=== PATIENT | female | born 1940 | race American Indian/Alaskan Native ===

== ENCOUNTER 2018-09-06 19:35 | Inpatient (IN) | payer MEDICARE, OTHER ==
--- NOTE | 2018-09-06 20:01 | ED PDOC ---
Arrival/HPI - General Chief Complaint: Seizure Time Seen by Provider: 09/06/18 19:39 - History of Present Illness Narrative History of Present Illness (Text): 77 y/o F c PMHx CVA with residual R sided weakness, HTN, clipped aneurysm p/w syncope x 5 seconds today. Patient was witnessed by family to lose consciousness for about 5 seconds, regained consciousness, was confused/dazed for a few more seconds and then returned to baseline. No convulsions. Patient denies any pain, dyspnea, vomiting, fever. Past Medical History - Cardiac Hx Hypertension: Yes - Neurological HX Cerebrovascular Accident: Yes (x 2) - Psychiatric Hx Depression: Yes Hx Emotional Abuse: No Hx Physical Abuse: No Hx Substance Use: No - Anesthesia Hx Anesthesia: No Hx Anesthesia Reactions: No Hx Malignant Hyperthermia: No - Suicidal Assessment Feels Threatened In Home Enviroment: No Family/Social History Family/Social History: No Known Family HX Smoking Status: Never Smoked Hx Alcohol Use: No Hx Substance Use: No Hx Substance Use Treatment: No Allergies/Home Meds Allergies/Adverse Reactions: Allergies No Known Allergies Allergy (Verified 07/02/12 12:39) Home Medications: Home Meds Medication Instructions Recorded Confirmed Furosemide [Lasix] 40 mg PO 09/07/18 Metoprolol Tartrate [Lopressor] 50 mg PO 09/07/18 RX: metFORMIN [glucOPHAGE] 09/07/18 Simvastatin 09/07/18 Spironolactone 09/07/18 Starlix 09/07/18 Review of Systems - Physician Review All systems were reviewed & negative as marked: Yes - Review of Systems Constitutional: absent: Fevers Respiratory: absent: SOB Cardiovascular: absent: Chest Pain Physical Exam - Physical Exam Narrative Physical Exam (Text): Gen: NAD Head: NC/AT Eyes: PERRL ENT: MMM Neck: Supple Chest: No tenderness CV: Regular rate Lungs: CTA b/l Abd: Soft, NT Back: No tenderness Skin: No rash Extremities: No tenderness Neuro: Alert, R sided weakness Vital Signs Temp Pulse Resp BP Pulse Ox 09/06/18 19:53 97.4 F L 60 18 149/64 98 Medical Decision Making ED Course and Treatment: EKG Sinus rhythm, 56 bpm, no ST elevations. 09/06/18 21:23 CT Head reviewed, shows: IMPRESSION: 1. There is generalized parenchymal atrophy noted as demonstrated by symmetrical dilatation of ventricles and sulci. 2. Chronic severe periventricular and subcortical microvascular disease is seen. 3. 8 mm left middle cranial fossa extra-axial ossified lesion compatible with a meninioma. 4. No acute intracranial pathology. Dr. Workman accepts patient to her service, recommends Dr. Queen for consultation. - RAD Interpretation Radiology Orders: 09/06/18 20:00 CHEST PORTABLE [RAD] Stat Disposition/Present on Arrival - Present on Arrival Any Indicators Present on Arrival: No History of DVT/PE: No History of Uncontrolled Diabetes: No Urinary Catheter: No History of Decub. Ulcer: No History Surgical Site Infection Following: None - Disposition Have Diagnosis and Disposition been Completed?: Yes Diagnosis: Syncope Disposition: HOSPITALIZED Disposition Time: 21:23 Patient Plan: Observation, Telemetry Condition: FAIR
[2018-09-06 21:24] LABS: ALB/GLOB RATIO 1.1 (1.1-1.8); ALBUMIN 4.3 g/dL (3.0-4.8); ALT/SGPT 17 U/L (7-56); AST/SGOT 23 U/L (14-36); BLOOD UREA NITROGEN 30 mg/dL (7-21); CALCIUM 9.7 mg/dL (8.4-10.5); GFR NON-AFRICAN AMERICAN 27
[2018-09-06 21:31] LABS: INR 0.97; PARTIAL THROMBOPLASTIN TIME 30.6 Seconds (25.1-36.5)
[2018-09-06 21:42] LABS: GRAN % 51.6 % (50.0-68.0); HEMOGLOBIN 10.7 g/dL (12.0-16.0); LYMPH % 38.3 % (22.0-35.0); MEAN CORPUSCULAR HEMOGLOBIN 26.3 pg (25.0-35.0); MEAN CORPUSCULAR HGB CONC 30.6 g/dl (31.0-37.0); MEAN PLATELET VOLUME 12.3 fl (7.0-11.0); RBC 4.07 10^6/uL (3.5-6.1); RED CELL DISTRIBUTION WIDTH 16.5 % (11.5-14.5); WHITE BLOOD COUNT 7.9 10^3/uL (4.5-11.0)
[2018-09-06 21:43] LABS: BASO # 0.02 K/mm3 (0.0-2.0); BASO % 0.3 % (0.0-3.0); EOS # 0.2 (0.0-0.7); EOS % 2.9 % (1.5-5.0); GRAN # 4.06 (1.4-6.5); MONO # 0.5 (0.1-0.6); MONO % 6.9 % (1.0-6.0)
[2018-09-06 22:01] LABS: B-TYPE NATRIURETIC PEPTIDE 5050 pg/mL (0-450)
[2018-09-06 22:16] LABS: TROPONIN I < 0.01 ng/mL
[2018-09-07 04:04] VITALS: BMI 32.5
--- NOTE | 2018-09-07 09:55 | CT ---
Date of service: 09/06/2018 PROCEDURE: CT HEAD WITHOUT CONTRAST. HISTORY: Syncope. History of aneurysm / CVA COMPARISON: Comparison prior CT scan brain dated 07/02/2012. TECHNIQUE: Axial computed tomography images were obtained through the head/brain without intravenous contrast. Radiation dose: Total exam DLP = 1430.28 mGy-cm. This CT exam was performed using one or more of the following dose reduction techniques: Automated exposure control, adjustment of the mA and/or kV according to patient size, and/or use of iterative reconstruction technique. FINDINGS: HEMORRHAGE: N the o parenchymal, subarachnoid nor extra-axial hemorrhage. BRAIN: Chronic left occipital and posterior temporal infarct (left [employer] territory).. In addition, there is a small discrete chronic infarct seen in the left aspect of the ginger. There are significant diffuse/confluent chronic periventricular white matter ischemic changes seen extending peripherally into the deep and subcortical white matter both cerebral hemispheres with extension into the white matter tracts of both basal nuclei.. Few more discrete chronic bilateral basal nuclei lacunar type infarcts also suspected Vascular calcifications both carotid siphons. There is an elliptical shaped extra-axial calcification arising from the floor of the left middle cranial fossa that could conceivably represent a calcified meningioma. VENTRICLES: No obstructive hydrocephalus. CALVARIUM: Unremarkable. PARANASAL SINUSES: There is a focal area polypoid like mucosal thickening left maxillary antrum. MASTOID AIR CELLS: Unremarkable as visualized. No inflammatory changes. OTHER FINDINGS: None. IMPRESSION: No acute intracranial hemorrhage. Chronic left temporoparietal infarct. Small left the small chronic left pontine infarct. Significant chronic white matter ischemic changes with extension into the white matter tracts of both basal nuclei. Few more discrete chronic bilateral basal nuclei lacunar type infarcts also suspected. Moderate generalized volume loss. Possible calcified meningioma arising from the anterior floor left middle cranial fossa.
[2018-09-07] MEDS ORDERED: Magnesium Hydroxide Susp 30 ml UD PO PRN (11:57)
[2018-09-07] MEDS: STARLIX PO SCH ×2 (13:26→17:07)
--- NOTE | 2018-09-07 15:07 | RAD ---
Date of service: 09/06/2018 HISTORY: syncope COMPARISON: Comparison chest 07/02/2012 FINDINGS: LUNGS: Poor inspiration with low lung volumes, crowded bronchovascular markings and mild bibasilar atelectasis. PLEURA: No significant pleural effusion identified, no pneumothorax apparent. CARDIOVASCULAR: Mild moderate aortic atherosclerotic calcification present. Cardiomegaly.. No pulmonary vascular congestion. OSSEOUS STRUCTURES: No significant abnormalities. VISUALIZED UPPER ABDOMEN: Normal. OTHER FINDINGS: None. IMPRESSION: Poor inspiration with low lung volumes, crowded bronchovascular markings and mild bibasilar atelectasis.
--- NOTE | 2018-09-07 17:42 | CARD ---
APPROVED REPORT Date of service: 09/06/2018 EKG Measurement Heart [id number] <Conclusion> Sinus bradycardia Left axis deviation Left ventricular hypertrophy with repolarization abnormality Cannot rule out Septal infarct, age undetermined Abnormal ECG
[2018-09-07] MEDS ORDERED: Home Med 1 UNIT PO SCH (18:00)
--- NOTE | 2018-09-07 21:38 | CON ---
DATE OF CONSULTATION: 09/07/2018 REFERRING PHYSICIAN: Nidhi Workman MD REASON FOR CONSULTATION: Recurrent CVA, may have sleep apnea syndrome. HISTORY OF PRESENT ILLNESS: This is a 77-year-old female, known history of stroke, history of cranial aneurysm requiring clipping in the remote past with right-sided weakness, hypertension, recurrent syncopal episode last month witnessed by the family, lasted 5 seconds, regained consciousness, but was confused, brought into emergency room, had a CT of the head done, which was unremarkable for any new changes. She is lying in the bed at this time agitated, presently in upper extremity restraint, has on and off cough, admits to have loud snoring, daytime sleepiness and tiredness. No vomiting, hematuria, no diarrhea reported. PAST MEDICAL HISTORY: Hypertension, history of stroke, history of cranial aneurysm requiring clipping, history of depression, heart failure and diabetes. FAMILY HISTORY: No significant cardiopulmonary disease reported. SOCIAL HISTORY: No history of smoking or alcohol use. MEDICATIONS: She is on Aldactone 25 mg daily, metformin 500 mg twice a day, Lasix 40 mg daily, Lipitor 10 mg daily, metoprolol tartrate 50 mg twice a day, Milk of Magnesia p.o. p.r.n., Pepcid 40 mg h.s., Tylenol p.r.n., vitamin D 5000 International Units weekly, Zestril 10 mg twice a day. ALLERGIES: NONE KNOWN. REVIEW OF SYSTEMS: Agitated at this time, has a restraint. No headache, no rhinitis. On and off cough and shortness of breath. No chest pain. No nausea, vomiting, diarrhea, leg pain or leg swelling. PHYSICAL EXAMINATION: GENERAL: No acute distress. VITAL SIGNS: Temperature is 98, heart rate 69, respiratory rate is 18, blood pressure 142/70, pulse ox 98% on room air. HEENT: Moist mucous membranes. Crowded airway. Mallampati score is 4. NECK: Supple. No JVD. LUNGS: Fair airflow with scattered rhonchi. HEART: S1 and S2. ABDOMEN: Soft, nontender, no organomegaly. EXTREMITIES: No edema. NEUROLOGICAL: Awake, alert, follows simple commands. LABORATORY DATA: Hemoglobin 10.7, hematocrit 35.0, WBC 7.9, platelets 208. INR 0.97. PTT 31. Sodium 139, potassium 4.8, chloride 101, bicarbonate 28, BUN 30, creatinine 1.8, glucose 71, calcium 9.7. AST 23, ALT 17, alk phos is 53. ProBNP 5050. Troponin less than 0.01. Albumin is 4.3. CAT scan of the head done in ER shows no acute intracranial hemorrhage, chronic left temporoparietal infarct, the small chronic left pontine infarct. There are also significant chronic white matter ischemic changes. There are also some lacunar infarcts. There is also calcified meningioma possibility. Chest x-ray done in ER shows poor inspiratory effort, low lung volume, crowded bronchovascular marking, and mild basilar atelectasis. IMPRESSION AND PLAN: Probably had a seizure/syncopal episode, history of cranial aneurysm requiring clipping, stroke with residual right-sided weakness, hypertension, diabetes, may have sleep apnea syndrome, could have bronchitis. Case discussed with the nursing staff. Keep head elevated at 45 degrees. Aspiration precautions. Dysphagia evaluation. We will be seen by Neurology. We will order an EEG. Seizure precautions. Gastric and DVT prophylaxis. We will suggest attending sleep study upon discharge as outpatient to rule out sleep apnea syndrome. Thank you and we will follow with you. Monica aGlaviz MD
[2018-09-07] MEDS: Insulin Reg-LOW-Coverage SC SCH (22:13)
--- NOTE | 2018-09-08 08:08 | CP.PCM.CON ---
History of Present Illness - History of Present Illness History of Present Illness: Awake, alert, confuse, disoriented,no distress Reason for consultation: Cardiac evaluation of syncope Brief history of present illness: A 77 year old female who was brought by daughter to ER due to lost of consciousness for about 5 seconds witnessed by daughter, when regained consciousness she was confused. History of cerebrovascu lar accident with right sided weakness, hypertension,clipped aneurysm, depression. Current smoker. Poor historian. Seen and examned by me and Dr. Purdy Review of Systems - Review of Systems Review of Systems: as per HPI Past Patient History - Past Social History Smoking Status: Current Some Days Smoker - CARDIAC Hx Cardiac Disorders: Yes Hx Hypertension: Yes - NEUROLOGICAL HX Cerebrovascular Accident: Yes (x 2) - MUSCULOSKELETAL/RHEUMATOLOGICAL Hx Falls: No - PSYCHIATRIC Hx Depression: Yes Hx Emotional Abuse: No Hx Physical Abuse: No Hx Substance Use: No - ANESTHESIA Hx Anesthesia: No Hx Anesthesia Reactions: No Hx Malignant Hyperthermia: No Meds Allergies/Adverse Reactions: Allergies Allergy/AdvReac Type Severity Reaction Status Date / Time No Known Allergies Allergy Verified 07/02/12 12:39 - Medications Medications: Current Medications Acetaminophen (Tylenol 325mg Tab) 650 mg PO Q4H PRN PRN Reason: pain fever Atorvastatin Calcium (Lipitor) 10 mg PO HS [facility] Last Admin: 09/07/18 22:16 Dose: Not Given Cholecalciferol (Vitamin D) 5,000 intlu PO QWK [facility] Enoxaparin Sodium (Lovenox) 40 mg SC DAILY [facility]; Protocol Famotidine (Pepcid) 40 mg PO HS [facility] Last Admin: 09/07/18 22:17 Dose: Not Given Furosemide (Lasix) 40 mg PO DAILY [facility] Home Med (Home Med) 60 unit PO TID [facility] Last Admin: 09/07/18 17:07 Dose: Not Given Insulin Human Regular (Humulin R Low) [address] [facility]; Protocol Last Admin: 09/07/18 22:13 Dose: Not Given Lisinopril (Zestril) 10 mg PO BID [facility] Last Admin: 09/07/18 17:24 Dose: 10 mg Magnesium Hydroxide (Milk Of Magnesia) 30 ml PO DAILY PRN PRN Reason: Constipation Metformin HCl (Glucophage) 500 mg PO BID [facility] Last Admin: 09/07/18 17:24 Dose: 500 mg Metoprolol Tartrate (Lopressor) 50 mg PO BID [facility] Last Admin: 09/07/18 17:24 Dose: 50 mg Spironolactone (Aldactone) 25 mg PO DAILY [facility] Physical Exam - Constitutional Appears: Non-toxic, No Acute Distress - Head Exam Head Exam: NORMAL INSPECTION, NORMOCEPHALIC - Eye Exam Eye Exam: Normal appearance Pupil Exam: NORMAL ACCOMODATION - ENT Exam ENT Exam: Mucous Membranes Moist, Normal Exam - Respiratory Exam Respiratory Exam: Clear to Auscultation Bilateral, NORMAL BREATHING PATTERN - Cardiovascular Exam Cardiovascular Exam: REGULAR RHYTHM, +S1, +S2 Additional comments: Telemetry NSR 70's with PVC's - GI/Abdominal Exam GI & Abdominal Exam: Normal Bowel Sounds, Soft - Neurological Exam Neurological exam: Alert Additional comments: confuse - Skin Skin Exam: Normal Color, Warm Results - Vital Signs Recent Vital Signs: Last Vital Signs Temp 97.9 F 09/08/18 00:01 Pulse 75 09/08/18 06:00 Resp 20 09/08/18 06:00 BP 130/65 09/08/18 06:00 Pulse Ox 94 L 09/08/18 06:00 - Labs Result Diagrams: 09/06/18 20:00 09/06/18 20:00 Labs: Laboratory Results - last 24 hr 09/07/18 09/07/18 09/07/18 11:09 16:01 21:34 POC Glucose (mg/dL) 107 171 H 121 H Assessment & Plan - Assessment and Plan (Free Text) Assessment: A 77 year old female who was brought by daughter to ER due to lost of consciousness for about 5 seconds witnessed by daughter, when regained consciousness she was confused. History of cerebrovascular accident(2x) with right sided weakness, hypertension,clipped aneurysm, depression. Current smoker. Poor historian. CT Head done and showed No acute intracranial hemorrhage. There is generalized parenchymal atrophy noted as demonstrated by symmetrical dilatation of ventricles and sulci. Chronic severe periventricular and subcortical microvascular disease is seen. 8 mm left middle cranial fossa ext ra-axial ossified lesion compatible with a meninioma. No cardiac work up done at [facility]. Will order echo to evaluate LV function. Elevated BNP 5050. Troponin normal ,Chest X ray showed poor inspiration with low lung volumes,mild bibasalar atelectasis, no pleural effusion, no pulmonary vascular congestion. Plan: Denies shortness of breath or chest pain Heart rate stable/controlled Blood pressure stable Echo to evaluate LV function TSH, lipid profile and HgbA1C level On Lipitor 10 mg daily,Lovenox 40 mg daily,Lasix 40 mg daily, Lisinopril 10 mg BID,Lopressor 50 mg BID,Aldactone 25 mg daily. Continue current treatment Continue current medications Chart reviewed Will follow up Further recommendations during hospital course Plan and treatment discussed with Dr. Purdy Thank you Dr. Workman for the opportunity of taking care of Ms. Torrey Macias - Date & Time Date: 09/08/18 Time: 06:15
[2018-09-08] MEDS: Insulin Reg-LOW-Coverage SC SCH ×4 (08:35→22:00)
[2018-09-08] MEDS: STARLIX PO SCH ×3 (09:41→18:19)
[2018-09-08] MEDS: Enoxaparin 40 mg Syringe SC SCH ×2 (09:41→10:34)
--- NOTE | 2018-09-08 14:55 | PN ---
DATE: 09/08/2018 REASON FOR CONSULTATION: Followup cardiac evaluation and syncope. This note is an addition to the note dictated by nurse practitioner. SUBJECTIVE: In summary, this is a 77-year-old female brought to the ER while sitting in the wheelchair. The patient possibly lost consciousness and brought here. The patient states that she was tired, but she did not lose the consciousness, though the patient has a history of CVA with right-sided weakness, hypertension, and poor historian. RECOMMENDATIONS: We will get echo. We will get lipid profile, TSH, hemoglobin A1c with orthostatic hypotension. We will resume previous medication. Further recommendations depending upon the hospital course. We will follow with you. Thank you, Dr. Workman, for providing us the opportunity in taking care of patient. Monica Purdy MD
--- NOTE | 2018-09-08 16:01 | PN ---
DATE: 09/08/2018 PULMONARY PROGRESS NOTE REFERRING PHYSICIAN: Nidhi Workman MD SUBJECTIVE: She is lying in the bed, head at 45 degrees. Daughter and son at bedside. Much more awake and alert. No headache, no rhinitis. No nausea, vomiting, or diarrhea. No leg pain or leg swelling. OBJECTIVE: GENERAL: In no acute distress. VITAL SIGNS: Temperature 98, heart rate is 72, respiratory rate is 18, blood pressure 97/55, pulse ox 94% on room air. HEENT: Moist mucous membranes. Crowded airway. Mallampati score is 4. NECK: Supple. No JVD. LUNGS: Have a fair airflow with rhonchi. HEART: S1, S2. ABDOMEN: Soft, nontender. No organomegaly. EXTREMITIES: No edema. NEUROLOGIC: Awake, alert. Follows simple commands. MEDICATIONS: She is on Aldactone 25 mg daily, metformin 5 mg twice a day, Lasix 40 mg daily, Lipitor 10 mg at bedtime, metoprolol tartrate 50 mg twice a day, Lovenox 40 mg subcutaneously daily, Pepcid 40 mg daily, Tylenol on as needed basis, vitamin D 5000 units daily, Zestril 10 mg twice a day. LABORATORY DATA: Reviewed. Blood sugar this morning, 136. IMPRESSION AND PLAN: Seizure disorder is being ruled out, could have a syncope, history of cranial aneurysm requiring clipping of aneurysm with residual weakness, hypertension, diabetes, may have sleep apnea syndrome, heart failure. Spoke to family at bedside. All the questions answered. Keep head at 45 degrees. Aspiration precaution. Dysphagia evaluation. Awaiting for Neurology evaluation. Electroencephalogram has been ordered, waiting for it. Continue gastric and deep venous thrombosis prophylaxis. Aspiration precaution. Fall precaution. We will order labs for the morning. Thank you and we will follow with you. Monica Galaviz MD
--- NOTE | 2018-09-08 23:12 | PN ---
DATE: 09/08/2018 SUBJECTIVE: The patient is a 77-year-old female. The patient was seen and examined at the bedside on 09/08/2018. The patient is lying down, comfortable. Getting EEG. No fevers. No chills. No hematuria or hematochezia. No swelling of legs. No chest pain or palpitation. No headache. No dizziness. PHYSICAL EXAMINATION: VITAL SIGNS: Temperature 98, heart rate 72, respiratory rate 18, blood pressure 97/55, and pulse oximetry 94%. HEENT: Head: Normocephalic and atraumatic. Eyes: PERRLA. Extraocular muscles intact. Conjunctivae clear. Nose patent. Mucous membranes moist. NECK: Supple. No carotid bruits. No JVD or thyromegaly. CHEST: Bilaterally symmetrical. HEART: S1 and S2 positive. LUNGS: Clear to auscultation. ABDOMEN: Soft, nontender. No organomegaly. EXTREMITIES: No edema. No cyanosis. NEUROLOGIC: The patient is awake and alert. Follow simple commands. MEDICATIONS: Aldactone, metformin, Lasix, Lipitor, metoprolol, Lovenox, Pepcid, Tylenol, vitamin D, and Zestril. LABORATORY DATA: We do not have labs today, but I reviewed old labs. Blood sugars 136. ASSESSMENT AND PLAN: Ms. Torrey Macias is a 77-year-old lady, resident of [facility], came with seizure disorder, may be syncopal attack. Neurologist is on the case. The patient is getting EEG at the time of examination. History of cranial aneurysm, requiring clipping of the aneurysm with residual weakness, hypertension, osteomyelitis, sleep apnea syndrome. Dr. Galaviz has discussion done with the family. Aspiration precautions, gastrointestinal and deep vein thrombosis prophylaxis. Repeat labs. We will follow up. Nidhi Workman MD
[2018-09-09] MEDS: Insulin Reg-LOW-Coverage SC SCH ×4 (08:04→22:11)
[2018-09-09 09:26] LABS: PH,URINE 8.5 (4.7-8.0); URINE APPEARANCE CLEAR (CLEAR); URINE BILIRUBIN NEGATIVE (NEGATIVE); URINE BLOOD NEGATIVE (NEGATIVE); URINE COLOR YELLOW (YELLOW); URINE GLUCOSE (UA) NEGATIVE (NEGATIVE); URINE LEUKOCYTE ESTERASE LARGE Leu/uL (NEGATIVE); URINE PROTEIN NEGATIVE mg/dL (<30 mg/dL)
[2018-09-09 09:39] LABS: URINE BACTERIA SMALL (NEG); URINE RBC NEGATIVE /hpf (0-2); URINE WBC 20 - 25 /hpf (0-6)
--- NOTE | 2018-09-09 09:47 | HP ---
DATE OF EXAM: 09/07/2018 CHIEF COMPLAINT: Seizures and TIA. HISTORY OF PRESENT ILLNESS: Ms. Macias is a 77-year-old female with past medical history of CVA with residual right-sided weakness, hypertension, clipped aneurysm, history of syncopal attack x5. Second on the day of admission, patient was witnessed by the family to lose consciousness for about 5 seconds, regain consciousness, was confused for a few seconds after that and then it went baseline. No convulsions. No fever. No chills. No hematuria or hematochezia. No swelling of the legs. No headache. No dizziness. The patient is a poor historian. Patient is resident of [facility]. PAST MEDICAL HISTORY: Cerebrovascular accident x2, depression, hypertension, and clipped aneurysm. FAMILY HISTORY: Father, mother noncontributory. HABITS: Never smoked. No drugs. No ethanol. ALLERGIES: THE PATIENT IS NOT ALLERGIC WITH ANY MEDICATIONS. HOME MEDICATIONS: Lasix, Lopressor, Glucagon, simvastatin, spironolactone, and Starlix. REVIEW OF SYSTEMS: The patient was seen and examined at the bedside in telemetry, looking comfortable. No nausea, vomiting, diarrhea. No hematuria or hematochezia. No swelling of the legs. No chest pain, no palpitation. No headache. No dizziness. Do not look in distress. PHYSICAL EXAMINATION: VITAL SIGNS: Temperature 97.4, pulse 60, respiratory rate 18, blood pressure 149/54, pulse oximetry is 98. HEENT: Head, normocephalic and atraumatic. Eyes PERRLA. Extraocular movements intact. Conjunctivae clear. Nose patent. Mucous membranes moist. NECK: Supple. No carotid bruits. No JVD. No thyromegaly. CHEST: Bilaterally symmetrical. HEART: S1,S2 positive. LUNGS: Clear to auscultation. ABDOMEN: Soft. Bowel sounds present. No organomegaly. EXTREMITIES: No edema. No cyanosis. NEUROLOGIC: The patient awake, alert, moving all 4 extremities. No focal deficit. LABORATORY DATA: White blood cells 7.9, hemoglobin 10.7, hematocrit 35, platelets 208. Sodium 139, potassium 4.8, BUN 30, creatinine 1.3, glucose 107. BNP 1550. Liver function test within normal limits. ASSESSMENT AND PLAN: Ms. Macias is a 77-year-old lady resident of [facility] has anemia, renal insufficiency, congestive heart failure, came with new onset seizures. CAT scan of the head is done, reviewed by me. No acute intracranial hemorrhage. Chronic left temporoparietal infarct, small chronic left pontine infarct. chronic white matter ischemic changes with extension into the white matter to both basal nuclei, a few more discrete chronic bilateral basal nuclei lacunar type infarct also suspected. Moderate generalized volume loss, possibly calcified meningioma arising from the interior floor of the left middle cranial fossa. Neurology consult called. Patient has history of diabetes mellitus, started on fingerstick, hypercholesterolemia, hypertension, chronic obstructive pulmonary disease, diabetes mellitus, gastrointestinal and deep venous thrombosis prophylaxis. Repeat labs. Discussion done with the nursing staff. Nidhi Workman MD [facility]
[2018-09-09] MEDS: cefTRIAXone 1 gm 1 GM/100 ML BAG IVPB SCH (11:04)
[2018-09-09] MEDS: Enoxaparin 40 mg Syringe SC SCH (11:05)
[2018-09-09] MEDS: STARLIX PO SCH ×3 (11:05→17:38)
[2018-09-09 13:03] VITALS: RESP 18
--- NOTE | 2018-09-09 14:43 | CP.PCM.PN ---
Subjective - Date & Time of Evaluation Date of Evaluation: 09/09/18 Time of Evaluation: 14:40 - Subjective Subjective: Patient sitting up at side of bed with family present. No acute distress noted. No headache, rhinitis, cough, SOB, chest pain,nausea, vomiting, abdominal pain, diarrhea, leg pain, leg swelling reported. Objective - Vital Signs/Intake and Output Vital Signs (last 24 hours): Temp Pulse Resp BP Pulse Ox 97.9 F 75 18 119/60 97 09/09/18 12:00 09/09/18 12:00 09/09/18 12:00 09/09/18 12:00 09/09/18 06:00 Intake and Output: 09/09/18 09/09/18 06:59 18:59 Intake Total 120 100 Output Total 250 Balance -130 100 - Medications Medications: Current Medications Acetaminophen (Tylenol 325mg Tab) 650 mg PO Q4H PRN PRN Reason: pain fever Atorvastatin Calcium (Lipitor) 10 mg PO HS [facility] Last Admin: 09/08/18 21:33 Dose: Not Given Cholecalciferol (Vitamin D) 5,000 intlu PO QWK [facility] Enoxaparin Sodium (Lovenox) 30 mg SC DAILY [facility]; Protocol Famotidine (Pepcid) 40 mg PO HS [facility] Last Admin: 09/08/18 21:33 Dose: Not Given Furosemide (Lasix) 40 mg PO DAILY [facility] Last Admin: 09/09/18 11:04 Dose: 40 mg Home Med (Home Med) 60 unit PO TID [facility] Last Admin: 09/09/18 13:06 Dose: Not Given Ceftriaxone Sodium (Rocephin 1 Gram Ivpb) 1 gm in 100 mls @ 100 mls/hr IVPB D AILY [facility]; Protocol Last Admin: 09/09/18 11:04 Dose: 100 mls/hr Insulin Human Regular (Humulin R Low) 0 units SC [facility]; Protocol Last Admin: 09/09/18 11:28 Dose: Not Given Levetiracetam (Keppra) 250 mg PO BID [facility] Lisinopril (Zestril) 10 mg PO BID [facility] Last Admin: 09/09/18 11:03 Dose: 10 mg Magnesium Hydroxide (Milk Of Magnesia) 30 ml PO DAILY PRN PRN Reason: Constipation Metformin HCl (Glucophage) 500 mg PO BID [facility] Last Admin: 09/09/18 11:04 Dose: 500 mg Metoprolol Tartrate (Lopressor) 50 mg PO BID [facility] Last Admin: 09/09/18 11:03 Dose: 50 mg Spironolactone (Aldactone) 25 mg PO DAILY [facility] Last Admin: 09/09/18 11:03 Dose: 25 mg - Labs Labs: 09/06/18 20:00 09/06/18 20:00 PT 11.0 SECONDS (9.4-12.5) 09/06/18 20:00 INR 0.97 09/06/18 20:00 APTT 30.6 Seconds (25.1-36.5) 09/06/18 20:00 - Constitutional Appears: No Acute Distress - Head Exam Head Exam: ATRAUMATIC, NORMOCEPHALIC - Eye Exam Eye Exam: EOMI, Normal appearance - ENT Exam ENT Exam: Mucous Membranes Moist - Neck Exam Neck Exam: Normal Inspection Additional comments: No JVD, Supple - Respiratory Exam Additional comments: Fair airflow, few rhonchi - Cardiovascular Exam Cardiovascular Exam: +S1, +S2 - GI/Abdominal Exam GI & Abdominal Exam: Soft, Normal Bowel Sounds Additional comments: No organomegaly - Extremities Exam Additional comments: No edema - Neurological Exam Neurological Exam: Alert, Awake - Skin Skin Exam: Normal Color, Warm Assessment and Plan - Assessment and Plan (Free Text) Assessment: Seizure Disorder being ruled out, possible Syncopal Episode, 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 May have sleep apnea syndrome. Spoke with family at bedside. Questions answered. Plan: EEG completed. No seizure activity per neurology noted. Aspiration Precaution. Dysphagia Evaluation. HOB elevated 45 degrees. Sleep Apnea Precaution. DVT prophylaxis. Gastric prophylaxis. Fall precaution. Seen and examined. Dr. Galaviz agreed to assessment and plan. Thank you for this consult. We will follow with you.
--- NOTE | 2018-09-09 14:57 | CON ---
DATE: 09/09/2018 NEUROLOGY CONSULTATION CHIEF COMPLAINT: Altered mental status. 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 There was no reported convulsions or any blank staring episodes. Currently, she is in the hospital, in no acute distress. She definitely has some form of cognitive impairment from underlying CVA. A CAT scan of the head shows a chronic left temporoparietal encephalomalacia that represents old infarct as well as an old left pontine infarct. Echocardiogram is currently done status post result. REVIEW OF SYSTEMS: A 14-point review of systems is negative as per the HPI. ALLERGIES: NO KNOWN DRUG ALLERGIES. PAST MEDICAL HISTORY: As above. MEDICATIONS: Reviewed by nurses' reconciliation sheet. FAMILY HISTORY: Noncontributory. LABORATORY DATA: Today's blood sugar is 147. PHYSICAL EXAMINATION: VITAL SIGNS: Temperature 97.9, pulse rate of 64, blood pressure 128/68, respiratory rate of 20, and oxygen saturation 97% on room air. GENERAL: The patient is sitting up in bed, in no acute distress. HEENT: Atraumatic, normocephalic. PERRLA. Extraocular muscles intact. NECK: Supple. No JVD, no adenopathy noted. LUNGS: Clear to auscultation. No adventitious sounds. HEART: S1, S2. Normal rate and rhythm. No murmurs, rubs, or gallops. ABDOMEN: Soft, nontender, nondistended. Bowel sounds are present. EXTREMITIES: No clubbing. No cyanosis. Peripheral pulses 2+ felt bilaterally. NEUROLOGIC: The patient is alert and oriented to person and place. Recall after 5 minutes is 0/3. Poor attention span. Slow thought process. Tangential speech. Fund of knowledge is poor. Speech is fluent without errors. She has mild dysarthria, but no major aphasia. Cranial nerves II through are XII intact. Motor Exam: She has spastic right-sided weakness from prior CVA. Left side is intact. Toes are downgoing bilaterally. Sensory Exam: Light touch and pinprick are decreased up to the calves bilaterally. Decreased vibration of the toes. DTRs are 2+ throughout and 1 at both knees and ankles. Coordination: Pdxwyc-ed-hphk intact to the left, difficult on the right arm due to spastic right upper extremity weakness from prior CVA. Gait is deferred for now. IMPRESSION: This syncopal event could be secondary to underlying vasovagal versus neurocardiogenic versus questionable seizures since she has a history of left temporoparietal encephalomalacia from prior infarct, which can put her at risk for having future seizure in the long run. 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 Her EEG showed bilateral cerebral dysfunction. No evidence of epileptiform activity. RECOMMENDATION: 1. At this time, I would recommend to keep a low-dose Keppra 250 p.o. b.i.d. for seizure prophylaxis. 2. Monitor blood sugars to keep it between 140-180. 3. Aspirin 81 mg and Lipitor 40 for stroke prevention. 4. Continue with underlying spironolactone given that she has underlying congestive heart failure and she has elevated BNP. 5. Monitor electrolytes and correct accordingly. Continue current present medical management. Thank you for this consult. Gerardo Queen MD
--- NOTE | 2018-09-09 15:48 | EEG ---
DATE: 09/07/2018 CONDITION OF THE RECORDING: Drowsy. DIAGNOSIS: Syncope. MEDICATIONS: Reviewed by nurse's reconciliation sheet. INTERPRETATION: This is a 16-channel international recording. Background activity was composed of 6 to 7 cycles per second. There was a small amount of beta activity of 15 to 20 cycles per second seen in this tracing. There was increased amount of theta activity of 5 to 7 cycles per second seen in this tracing. Drowsiness was characterized by mixed beta and theta activities. Sleep was characterized by vertex transient waves, sleep spindles, and bilateral slowing. Photic stimulation showed no change in the tracing. No paroxysmal activity was noted in this recording. CONCLUSION: This is an abnormal electroencephalogram due to the presence of mild diffuse slowing throughout the recording consistent with mild bilateral cerebral dysfunction. No evidence of any epileptiform activity. Please clinically correlate. Gerardo Queen MD
--- NOTE | 2018-09-09 16:35 | PN ---
DATE: 09/09/2018 REASON FOR CONSULTATION AND FOLLOWUP: Cardiac evaluation, admitted with syncope. The patient sitting at bedside. Denies any chest pain, shortness of breath, or any palpitation. Claimed that she does not have any heart problem, does not want to be seen by any ticket taker ferryboat because heart is good. SUBJECTIVE: Not in apparent distress. PHYSICAL EXAMINATION: VITAL SIGNS: Temperature afebrile, heart rate 64, blood pressure 120/68. HEENT: PERRLA. Extraocular muscles intact. NECK: Supple. No carotid bruits or thyromegaly. CHEST: Clear to auscultation. HEART: S1 and S2 regular. ABDOMEN: Soft. EXTREMITIES: Clubbing, cyanosis negative. LABORATORY DATA: Blood workup; WBC 7.9, hemoglobin 10, hematocrit 35, platelet count 208. Chemistries show sodium 139, potassium 4, chloride 101, carbon dioxide 28, anion gap of 15, BUN 30, creatinine 1.8 as of 09/06/2018. IMPRESSION: A 77-year-old female, obese, with body mass index 33.8 kg/m2, diabetes, hypertension, hyperlipidemia, history of cerebrovascular accident with right sided weakness, admitted with near syncope. RECOMMENDATION: Continue deep venous thrombosis prophylaxis, continue gentle diuretics, continue spironolactone, repeat the labs, follow up electrolytes. We will get echo to assess LV function. Check for orthostasis. Continue metoprolol 50 twice a day. We will follow with you. EKG showed sinus bradycardia, left axis deviation, LVH. We will repeat the stat blood workup today, awaiting for the blood. Thank you Dr. Workman for providing us the opportunity in taking care of the patient, Torrey Macias. Monica Purdy MD
--- NOTE | 2018-09-09 16:57 | CARD ---
APPROVED REPORT Date of service: 09/09/2018 EXAM: Two-dimensional and M-mode echocardiogram with Doppler and color Doppler. INDICATION LV Function:SystolicDiastolic Syncope 2D DIMENSIONS Left Atrium (2D)4.4 (1.6-4.0cm)IVSd1.7 (0.7-1.1cm) LVDd4.1 (3.9-5.9cm)PWd1.8 (0.7-1.1cm) LVDs2.9 (2.5-4.0cm)FS (%) 30.9 % LVEF (%)59.0 (>50%) M-Mode DIMENSIONS Aortic Root2.20 (2.2-3.7cm)Aortic Cusp Exc.1.20 (1.5-2.0cm) Aortic Valve AoV Peak Yvsbuqax275.0cm/Gogo Peak GR.17mmHgLVOT Peak Fywknuhd647.0cm/s LVOT VTI30.50cm Mitral Valve MV E Zddzatfo85.3cm/sMV A Svygvmuo523.0cm/sMV PIO478wr E/A ratio0.5MVA (PHT)1.42cm2 TDI E/Lateral E'0.0E/Medial E'0.0 Tricuspid Valve TR Peak Oarstevq875fg/sRAP [id number] Peak Gr.9mmHg [id number] LEFT VENTRICLE The left ventricle is normal size. There is mild to moderate concentric left ventricular hypertrophy. Proximal septal thickening is noted, With IHSS physiology but Peak resting gradient 10 mmof Hg. The left ventricular function is normal.EF-55-60% There is normal LV segmental wall motion. Transmitral Doppler flow pattern is Grade III-reversible restrictive diastolic dysfunction. No left ventricle thrombus noted on this study. There is no ventricular septal defect visualized. There is no left ventricular aneurysm. There is no mass noted in the left ventricle. RIGHT VENTRICLE The right ventricle is normal size. There is normal right ventricular wall thickness. The right ventricular systolic function is normal. ATRIA The left atrium size is normal. The right atrium size is normal. The interatrial septum is intact with no evidence for an atrial septal defect. AORTIC VALVE The aortic valve is calcified and displays decreased opening. The aortic valve is not well visualized. There is trace aortic regurgitation. There is mild to moderate valvular aortic stenosis.( not well Visulazied) There is no aortic valvular vegetation. MITRAL VALVE The mitral valve is calcified and displays decreased opening. Mitral annular calcification is moderate to severe. Mitral regurgitation is trace. There is mild to moderate mitral valve stenosis.( MVA 1.4cm2 by PHT) There is no evidence of mitral valve prolapse. TRICUSPID VALVE The tricuspid valve leaflets are thickened , but open well. There is trace tricuspid regurgitation.RVSP-19 mmof Hg. There is no tricuspid valve stenosis. There is no tricuspid valve prolapse or vegetation. PULMONIC VALVE The pulmonary valve is normal in structure. There is no pulmonic valvular regurgitation. There is no pulmonic valvular stenosis. GREAT VESSELS The aortic root is normal in size. The ascending aorta is normal in size. The pulmonary artery is normal. The IVC is normal in size and collapses >50% with inspiration. PERICARDIAL EFFUSION There is no pleural effusion. There is no pericardial effusion. <Conclusion> Normal chamber Size. EF-55-60% There is trace aortic regurgitation. There is mild to moderate valvular aortic stenosis.( not well Visulazied) Mitral regurgitation is trace. There is mild to moderate mitral valve stenosis.( MVA 1.4cm2 by PHT) There is trace tricuspid regurgitation.RVSP-19 mmof Hg. The IVC is normal in size and collapses >50% with inspiration. There is no pericardial effusion. No vegetation or thrombus noted. There is mild to moderate concentric left ventricular hypertrophy. Proximal septal thickening is noted, With IHSS physiology but Peak resting gradient 10 mmof Hg.
--- NOTE | 2018-09-10 02:17 | PN ---
DATE: 09/09/2018 SUBJECTIVE: The patient is a 77-year-old female. The patient was seen and examined at the bedside. Looking comfortable. No fever. No chills. No nausea, vomiting or diarrhea. Still is confused. No headache. No dizziness. She is not able to give good review of systems. PHYSICAL EXAMINATION: VITAL SIGNS: Temperature 97.9, pulse 64, blood pressure 128/68, and respiratory rate 20. HEENT: Head: Normocephalic, atraumatic. Eyes: PERRLA. Extraocular muscles intact. Conjunctivae clear. Nose patent. Mucous membranes moist. NECK: Supple. No carotid bruit. No JVD or thyromegaly. CHEST: Bilaterally symmetrical. HEART: S1 and S2 positive. LUNGS: Clear to auscultation. ABDOMEN: Soft. Bowel sounds present. No organomegaly. EXTREMITIES: No edema. No cyanosis. NEUROLOGICAL: The patient is awake and alert. Moving all four extremities. No focal deficit but confused. MEDICATIONS: Aldactone, metformin, insulin, Keppra, Lasix, Lopressor, Lovenox, milk of magnesia, Pepcid, ceftriaxone, Tylenol, vitamin D, and Zestril. LABORATORY DATA: White blood cells 7.9, hemoglobin 10.7, hematocrit 35, and platelets 208. Glucose 147 and 125. ASSESSMENT AND PLAN: Ms. Torrey Macias is a 77-year-old lady with anemia and diabetes mellitus. Came with syncopal attack. Seen by Neurology, Dr. Gerardo Queen. May be secondary to underlying vasovagal versus neurocardiogenic versus questionable seizure, because the patient has a history of left temporoparietal encephalomalacia from prior infarct which can put her at risk of having future seizures in the long run. She does have some former vascular dementia. History of cerebrovascular accident, history of spastic right-sided weakness from prior cerebrovascular accident. Her electroencephalogram showed bilateral cerebral dysfunction. No evidence of epileptic activity as per Neurology, but Neurology recommended to continue low dose of Keppra 250 mg p.o. b.i.d. for seizure prophylaxis. Monitor blood sugar. Continue aspirin and Lipitor per stroke protocol. Continue underlying spironolactone given she has underlying congestive heart failure and elevated brain natriuretic peptide. Urinary tract infection, getting antibiotics. Will work over antibiotics. Seen by the boring inspector and neurologist. Discussion done with the patient's daughter. History of chronic obstructive pulmonary disease; cranial aneurysm, requiring clipping of the aneurysm with residual weakness; hypertension; sleep apnea syndrome. Dr. Galaviz spoke to the family on the bedside. Questions answered. Deep venous thrombosis prophylaxis. Gastrointestinal prophylaxis. Repeat labs. We will follow. Nidhi Workman MD MTDD
[2018-09-10 06:33] VITALS: TEMP 98.2; O2SAT 98
[2018-09-10] MEDS: Insulin Reg-LOW-Coverage SC SCH ×2 (08:25→11:30)
[2018-09-10] MEDS: Enoxaparin 30 mg Syringe SC SCH ×2 (10:00→10:19)
[2018-09-10] MEDS: STARLIX PO SCH ×2 (10:00→13:13)
[2018-09-10] MEDS: cefTRIAXone 1 gm 1 GM/100 ML BAG IVPB SCH ×2 (10:01→10:18)
[2018-09-10 10:05] VITALS: BP 141/70; PULSE 62
--- NOTE | 2018-09-10 12:01 | PN ---
DATE: 09/10/2018 PULMONARY PROGRESS NOTE REFERRING PHYSICIAN: Dr. Workman SUBJECTIVE: Patient is sitting up in bed, no overnight events reported, no headache, rhinitis, cough, shortness of breath, chest pain, abdominal pain, nausea, vomiting, diarrhea, leg pain or leg swelling reported. OBJECTIVE: VITAL SIGNS: Blood pressure 141/70, pulse 62, temperature 98.2, respirations 18, saturation 98% on room air. PHYSICAL EXAMINATION: GENERAL: No acute distress. HEENT: Moist mucous membranes. Crowded airway. Mallampati score is 4. NECK: Supple, no JVD. LUNGS: Fair airflow bilaterally with few rhonchi. CARDIOVASCULAR: S1, S2 audible. ABDOMEN: Soft, nontender, no distention, no organomegaly. EXTREMITIES: No edema bilaterally. NEUROLOGIC: Awake, alert, follows simple commands. LABORATORY DATA: Reviewed. Echocardiogram shows ejection fraction 55% to 60%. RVSP 19, trace aortic regurgitation, twsl-cb-mxdbcxhn valvular aortic stenosis. Mitral regurgitation is trace. Jojg-db-wxbkvaup mitral valve stenosis. Trace tricuspid regurgitation, IVC is normal in size and collapses greater than 50% with inspiration. No pericardial effusion, no vegetation or thrombus noted. Ibzv-ot-zrojypev concentric left ventricular hypertrophy, proximal septal thickening is noted with IHSS physiology with peak resting gradient 10 mmHg. MEDICATIONS: Reviewed. Tylenol 650 mg every 4 hours p.r.n., Lipitor 10 mg at bedtime, Rocephin 1 g IV daily, vitamin D 5000 weekly, Lovenox 30 mg daily, Pepcid 40 mg at bedtime, Lasix 40 mg daily, Humulin R sliding scale Keppra 250 mg twice a day, lisinopril 10 mg twice a day, milk of magnesia 30 mg daily as needed, metformin 500 mg twice a day, metoprolol 50 mg twice a day, Aldactone 25 mg daily. 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 Keep head of bed elevated 45 degrees, aspiration precaution, dysphagia, evaluation and precaution, gastric and deep venous thrombosis prophylaxis, fall precaution and seizure precaution. This patient was seen and examined with Dr. Galaviz. Discussed assessment and plan as described above. Thank you for this consult and we will follow with you. Jerome Jefferson APN <Monica Galaviz MD> [facility] # [id number]
[2018-09-10 13:23] LABS: CALCIUM 9.7 mg/dL (8.4-10.5)
--- NOTE | 2018-09-10 14:34 | PN ---
DATE: 09/10/2018 REASON FOR CONSULTATION AND FOLLOWUP: Cardiac evaluation, admitted with syncope. SUBJECTIVE: The patient denies any chest pain, shortness of breath, or any palpitation. OBJECTIVE: Eating breakfast, now feels okay. Denies any chest pain, shortness of breath, or any palpitation. PHYSICAL EXAMINATION: VITAL SIGNS: Temperature afebrile, heart rate , blood pressure 148/85. HEENT: PERRLA. Extraocular muscles intact. NECK: Supple. No carotid bruits or thyromegaly. CHEST: Clear to auscultation. HEART: S1 and S2 regular. ABDOMEN: Soft. EXTREMITIES: Clubbing and cyanosis negative. LABORATORY DATA: Blood workup as follows 09/06/2018; WBC 7.9, hemoglobin 10, hematocrit 35, platelet count 208. Chemistries show as of 09/06/2018, sodium 139, potassium 4, chloride 101, carbon dioxide 28, anion gap of 15, BUN 30, creatinine 1.8. Telemetry shows normal sinus, left ventricular hypertrophy, left axis deviation. The patient underwent echocardiography done yesterday that revealed ejection fraction 55% to 60%, uazi-jt-rvyztgxf aortic stenosis not well visualized, trace mitral regurgitation, tenp-sd-wlvqdxdy calcified mitral valve stenosis, mitral valve area 1.4 cm by pressure , trace tricuspid regurgitation, RV systolic pressure 19. No pericardial effusion, no vegetation noted. Moderate concentric LVH, proximal septal thickening noted with but peak resting gradient 10 mmHg. IMPRESSION: This is a 77-year-old female with obesity, ____ body mass index 34 kg/m2, hypertension, hyperlipidemia, history of cerebrovascular accident, right sided weakness, admitted with syncope. RECOMMENDATION: The patient has zyzs-dq-ogbavqdt aortic stenosis, srlv-vm-wjnfuycq mitral stenosis, jbqx-as-cnyplwkh physiology, but the resting gradient is 10 mmHg. Continue beta chidi and maintain euvolemic state. Continue deep venous thrombosis prophylaxis. We will order again for orthostatic change to check the blood pressure. Try to avoid dehydration, so the blood pressure is 140/72. When cardiovascular status is stable, admitting BNP was elevated. Continue gentle diuretics, monitor electrolytes. Repeat the blood workup in the morning. Telemetry has been discontinued by Dr. Workman. We will follow with you. We will repeat the blood workup in the morning. Cardiovascular status is stable. Continue as mentioned low-dose beta chidi. Thank you Dr. Workman for providing us the opportunity in taking care of the patient, Torrey Macias. Monica Purdy MD (Delete this signature block when dictator is a preceptor.) cc: MD Rasheed (Delete if not dictated.)
--- NOTE | 2018-09-10 17:20 | CON ---
DATE: 09/10/2018 The patient is seen in room #262, bed 2. CHIEF COMPLAINT: Change in mental status x1 day. HISTORY OF PRESENT ILLNESS: This is a 77-year-old halfway patient with a history of cerebrovascular accident and with diabetes mellitus, depression, history of E. coli urinary tract infection in 2012. The patient has a right-sided weakness, who is at the halfway with a history of renal insufficiency, congestive heart failure, who came in with a new onset of seizures and chronic left temporal parietal infarct and concerned about urinary tract infection. Infectious Disease consultation requested. The patient's mental status is poor. Unable to get information from the patient. There have been no fevers, no chills reported. No headaches, at this point difficult to obtain. No chest pain. There is mild shortness of breath. No abdominal pain, diarrhea, or constipation. REVIEW OF SYSTEMS: A 14-point review of systems is performed. PAST MEDICAL HISTORY: Significant for cerebrovascular accident with a left temporoparietal infarct with right-sided weakness, E. coli urinary tract infection in 2012, diabetes mellitus and depression and hyperlipidemia. PAST SURGICAL HISTORY: Significant for aneurysm repair. ALLERGIES: THE PATIENT HAS NO KNOWN ALLERGIES. MEDICATIONS: Medications at home reveals the patient to be on metoprolol, Lasix, enalapril, metformin. PHYSICAL EXAMINATION: GENERAL: The patient is in bed, in no acute distress. She appears to be comfortable; however, she does not verbalize well, as far as accuracy is concerned. VITAL SIGNS: Temperature is 98, blood pressure is 120/60, respiratory rate of 18, heart rate of 75. HEENT: Examination of HEENT is unremarkable. NECK: Supple. LUNGS: Have decreased breath sounds. HEART: Normal S1, S2. ABDOMEN: Soft, nontender. LABORATORY EXAMINATION: Reveals a white count of 7.9, hemoglobin of 10, platelets of 208. Chemistries are noted and creatinine is 1.8. BNP is 5050. Urinalysis is noted with large leukocyte esterase 2050 though with 25 wbc's, small bacteria. IMAGING DATA: The echo reveals ejection fraction of 59% and chest x-ray is reported as crowded bronchovascular markings. ASSESSMENT AND PLAN: This is a 77-year-old halfway female with history of cerebrovascular accident, right-sided weakness, Escherichia colitis in the past, and urinary tract infection, diabetes, depression, admitted with acute diastolic congestive heart failure on top of chronic congestive heart failure with urinary tract infection and acute kidney injury, her creatinine has changed from 1.0 to 1.8. We will treat the patient with Maxipime 1 g every 12 hours, discontinue ceftriaxone pending blood and urine culture results, and we will follow with you. Tuan Padilla MD
[2018-09-10] MEDS ORDERED: Cefepime 1gm in NS 100ml 1 GM/100 ML BAG IVPB SCH (22:00)
[2018-09-14] MEDS ORDERED: Cholecalciferol 1,000 INTLU TAB PO SCH (10:00)
== END 2018-09-10 19:13 | DRG 312 ==
LOC: ED 19:35 → ERH 22:29 → 2RNO 09-07 00:22 → OBSVTOIN 09-07 17:06
PROVIDERS: ADMIT Internal Medicine; ATTEND Internal Medicine
DX: R55 Syncope and collapse (principal); I69.351 Hemiplegia and hemiparesis following cerebral infarction affecting right dominant side; N39.0 Urinary tract infection, site not specified; N17.9 Acute kidney failure, unspecified; I50.32 Chronic diastolic (congestive) heart failure; J98.11 Atelectasis; I69.398 Other sequelae of cerebral infarction; F01.50 Vascular dementia, unspecified severity, without behavioral disturbance, psychotic disturbance, mood disturbance, and anxiety; I11.0 Hypertensive heart disease with heart failure; E11.9 Type 2 diabetes mellitus without complications; E78.00 Pure hypercholesterolemia, unspecified; J44.9 Chronic obstructive pulmonary disease, unspecified; E78.5 Hyperlipidemia, unspecified; D64.9 Anemia, unspecified; F17.200 Nicotine dependence, unspecified, uncomplicated; G47.30 Sleep apnea, unspecified; E66.9 Obesity, unspecified; Z68.34 Body mass index [BMI] 34.0-34.9, adult